=== PATIENT | female | born 1960 | race Hispanic/Latino ===

== ENCOUNTER 2018-05-07 09:57 | Emergency (ER) | payer OTHER, MEDICARE | END 2018-05-07 10:39 | disposition home or self-care (01) | LOC: EDH 09:57 | DX: G56.02 Carpal tunnel syndrome, left upper limb (principal); E11.9 Type 2 diabetes mellitus without complications; E78.5 Hyperlipidemia, unspecified; I10 Essential (primary) hypertension; I25.2 Old myocardial infarction; Z90.710 Acquired absence of both cervix and uterus; Z90.49 Acquired absence of other specified parts of digestive tract; Z98.890 Other specified postprocedural states; Z79.899 Other long term (current) drug therapy; Z88.1 Allergy status to other antibiotic agents | CPT/HCPCS: 29125 ==

== ENCOUNTER 2018-05-09 16:45 | Emergency (ER) | payer OTHER, MEDICARE ==
[2018-05-09 17:06] LABS: APPEARANCE,URINE Clear (CLEAR); BILIRUBIN,URINE Negative (NEGATIVE); COLOR,URINE Yellow (YELLOW); GLUCOSE, URINE (UA) Negative (NEGATIVE); KETONES,URINE Negative (NEGATIVE); LEUKOCYTE ESTERASE ,URINE Large (NEGATIVE); NITRATE,URINE Negative (NEGATIVE); OCCULT BLOOD,URINE Small (NEGATIVE); PROTEIN,URINE Negative (NEGATIVE); UROBILINOGEN,URINE 0.2 mg/dL (0.2-1.0)
[2018-05-09 17:17] LABS: BACTERIA,URINE Few /HPF (None Seen); SQUAMOUS EPITHELIAL CELL,UR Rare /HPF (0-2); WBC,URINE 26-50 /HPF (0-1)
[2018-05-09] MEDS ORDERED: LIDOCAINE HCL-MPF 1% 2ML VIAL ONE (17:23)
[2018-05-09] MEDS ORDERED: CEFTRIAXONE SODIUM 1 GM ONE (17:24)
== END 2018-05-09 18:26 | disposition home or self-care (01) ==
LOC: EDH 16:45
DX: N39.0 Urinary tract infection, site not specified (principal); E11.9 Type 2 diabetes mellitus without complications; E78.5 Hyperlipidemia, unspecified; I10 Essential (primary) hypertension; I25.2 Old myocardial infarction; Z88.1 Allergy status to other antibiotic agents
CPT/HCPCS: 81001; 82948; 87088; 87186; 96372; 99284; J0696; J3490

== ENCOUNTER → 2018-05-16 | Outpatient (CLI) | payer OTHER, MEDICARE | END | disposition home or self-care (01) | LOC: OIH 08:11 | PROVIDERS: ATTEND Family Medicine | DX: M25.532 Pain in left wrist (principal) | CPT/HCPCS: 71046; 73110 ==

== ENCOUNTER 2019-11-21 06:09 | Emergency (ER) | payer OTHER, MEDICARE ==
[2019-11-21] MEDS ORDERED: ONDANSETRON HCL 4 MG/2 ML VIAL ONE (06:48)
[2019-11-21] MEDS ORDERED: METOCLOPRAMIDE 10 MG/2 ML VIAL ONE (06:48)
[2019-11-21] MEDS ORDERED: SODIUM CHLORIDE 0.9% 1000ML 2,000 ML IV ONE (06:49)
[2019-11-21] MEDS ORDERED: KETOROLAC TROMETHAMINE 15MG/ML ONE (06:49)
[2019-11-21 07:10] LABS: BASOPHILS % (AUTO) 0.4 % (0.0-5.0); EOSINOPHILS % (AUTO) 0.1 % (0.0-8.0); HEMATOCRIT 42.9 % (36-48); LYMPHOCYTES % (AUTO) 15.4 % (21.0-51.0); MEAN CORPUSCULAR HGB CONC 31.9 g/dL (32.0-36.0); MEAN CORPUSCULAR VOLUME 78.1 fL (79-99); MONOCYTES % (AUTO) 4.6 % (3.0-13.0); PLATELET COUNT (AUTO) 353 K/uL (130-400); RED BLOOD CELL COUNT(AUTO) 5.49 MIL/uL (4.00-5.50); RED CELL DISTRIBUTION WIDTH 13.9 % (11.0-15.5); WHITE BLOOD COUNT (AUTO) 12.7 K/uL (4.8-10.8)
[2019-11-21 07:59] LABS: ALBUMIN 4.1 g/dL (3.5-5.0); BILIRUBIN,TOTAL 0.5 mg/dL (0.2-1.0); CREATININE 0.9 mg/dL (0.5-1.5); POTASSIUM 3.1 mmol/L (3.5-5.1); TOTAL PROTEIN, SERUM 7.9 g/dL (6.0-8.3)
[2019-11-21 08:01] LABS: APPEARANCE,URINE Clear (CLEAR); BILIRUBIN,URINE Negative (NEGATIVE); COLOR,URINE Yellow (YELLOW); GLUCOSE, URINE (UA) TRACE mg/dL (NEGATIVE); KETONES,URINE >=80 mg/dL (NEGATIVE); LEUKOCYTE ESTERASE ,URINE Negative (NEGATIVE); NITRATE,URINE Negative (NEGATIVE); OCCULT BLOOD,URINE Moderate (NEGATIVE); PH,URINE 5.5 (5.0-8.0); PROTEIN,URINE POS 2+ mg/dL (NEGATIVE); UROBILINOGEN,URINE 0.2 mg/dL (0.2-1.0)
[2019-11-21 08:15] LABS: BACTERIA,URINE Rare /HPF (None Seen); MUCUS,URINE Moderate LPF (None Seen); WBC,URINE None Seen /HPF (0-1)
[2019-11-21] MEDS ORDERED: ACETAMINOPHEN 325 MG TAB ONE (08:27)
[2019-11-21] MEDS ORDERED: ORPHENADRINE CITRATE 30 MG/ML ML ONE (08:27)
[2019-11-22] MEDS ORDERED: TROS60CA4 PO (11:13)
[2019-11-22] MEDS ORDERED: NAPR-1023 PO (11:13)
[2019-11-22] MEDS ORDERED: METO10TA3 PO (11:13)
[2019-11-22] MEDS ORDERED: LISI40TA4 PO (11:13)
[2019-11-22] MEDS ORDERED: IBUP-2070 PO (11:13)
[2019-11-22] MEDS ORDERED: LURA20TA PO (11:13)
[2019-11-22] MEDS ORDERED: ESOM40CA54 PO (11:13)
[2019-11-22] MEDS ORDERED: ONDA4TAB9 PO (11:13)
[2019-11-22] MEDS ORDERED: PROM25TA7 PO (11:13)
[2019-11-22] MEDS ORDERED: ORPH-43 PO (11:13)
[2019-11-22] MEDS ORDERED: VARE1TAB21 PO (11:13)
[2019-11-22] MEDS ORDERED: MILN50TA PO (11:13)
[2019-11-22] MEDS ORDERED: ESCI10TA54 PO (11:13)
[2019-11-22] MEDS ORDERED: AZIT250T9 PO (11:13)
[2019-11-22] MEDS ORDERED: OSEL75CA17 PO (11:13)
[2019-11-22] MEDS ORDERED: ALPR1TAB7 PO (11:13)
[2019-11-22] MEDS ORDERED: OXCA300T28 PO (11:13)
== END 2019-11-21 08:36 | disposition home or self-care (01) ==
LOC: EDH 06:09
DX: E86.9 Volume depletion, unspecified (principal); R11.2 Nausea with vomiting, unspecified; R19.7 Diarrhea, unspecified; M62.830 Muscle spasm of back; R50.9 Fever, unspecified; I10 Essential (primary) hypertension; E78.5 Hyperlipidemia, unspecified; E11.9 Type 2 diabetes mellitus without complications; I25.2 Old myocardial infarction; Z88.1 Allergy status to other antibiotic agents; Z72.0 Tobacco use; Z90.49 Acquired absence of other specified parts of digestive tract; Z98.890 Other specified postprocedural states
CPT/HCPCS: 36415; 80053; 81001; 83690; 85025; 96361; 96374; 96375; 99285; J1885; J2360; J2405; J2765; J7030

== ENCOUNTER 2020-04-09 11:52 | Emergency (ER) | payer OTHER, MEDICARE ==
[~2020-04-09 11:52] MED LIST: ALPR1TAB7 PO; ESCI10TA54 PO; ESOM40CA54 PO; IBUP-2070 PO; LISI40TA4 PO; LURA20TA PO; METO10TA3 PO; MILN50TA PO; NAPR-1023 PO; ONDA-104 PO; ORPH-43 PO; OXCA300T28 PO; PROM25TA7 PO; TROS60CA4 PO; VALA100031 PO; VARE1TAB21 PO
[2020-04-09] MEDS ORDERED: ORPHENADRINE CITRATE 30 MG/ML ML ONE (13:28)
== END 2020-04-09 13:45 | disposition home or self-care (01) ==
LOC: EDH 11:52
DX: M94.0 Chondrocostal junction syndrome [Tietze] (principal); E11.9 Type 2 diabetes mellitus without complications; E78.5 Hyperlipidemia, unspecified; I10 Essential (primary) hypertension; I25.2 Old myocardial infarction; Z90.49 Acquired absence of other specified parts of digestive tract; Z72.0 Tobacco use; Z88.0 Allergy status to penicillin; Z88.5 Allergy status to narcotic agent; V49.59XA Passenger injured in collision with other motor vehicles in traffic accident, initial encounter; Y93.89 Activity, other specified; Y92.488 Other paved roadways as the place of occurrence of the external cause; Y99.8 Other external cause status
CPT/HCPCS: 71046; 93005; 96372; 99283; J2360

== ENCOUNTER 2021-03-07 12:33 | Emergency (ER) | payer MEDICARE, OTHER ==
[~2021-03-07 12:33] MED LIST changes: +ESCI-8 PO; -ESCI10TA54 PO; -LISI40TA4 PO; +LISI40TA9 PO
[2021-03-07] MEDS ORDERED: CYCLOBENZAPRINE HCL 10 MG TABLET ONE (13:08)
[2021-03-07] MEDS ORDERED: KETOROLAC 60 MG VIAL (30MG/ML) ONE (13:08)
== END 2021-03-07 14:35 | disposition home or self-care (01) ==
LOC: EDH 12:33
DX: S16.1XXA Strain of muscle, fascia and tendon at neck level, initial encounter (principal); S40.012A Contusion of left shoulder, initial encounter; S70.02XA Contusion of left hip, initial encounter; E11.9 Type 2 diabetes mellitus without complications; E78.5 Hyperlipidemia, unspecified; I10 Essential (primary) hypertension; I25.2 Old myocardial infarction; Z90.49 Acquired absence of other specified parts of digestive tract; Z72.0 Tobacco use; Z88.0 Allergy status to penicillin; V49.49XA Driver injured in collision with other motor vehicles in traffic accident, initial encounter; Y93.89 Activity, other specified; Y92.481 Parking lot as the place of occurrence of the external cause; Y99.8 Other external cause status
CPT/HCPCS: 70450; 71045; 72125; 73030; 73502; 96372; 99285; J1885

== ENCOUNTER 2021-04-15 18:25 | Emergency (ER) | payer OTHER, MEDICARE ==
[2021-04-15 19:59] LABS: ABG BASE EXCESS -0.3 mmol/L (-2.0-3.0); ABG HCO3 21.8 mmol/L (21.0-28.0); ABG OXYGEN SATURATION 96.4 % (95.0-99.0); ABG PCO2 29 mmHg (32-45)
[2021-04-15] MEDS ORDERED: METOCLOPRAMIDE 10 MG/2 ML VIAL ONE (19:59)
[2021-04-15] MEDS ORDERED: SODIUM CHLORIDE 0.9% 1000ML 1,000 ML IV ONE (19:59)
[2021-04-15] MEDS ORDERED: ONDANSETRON HCL 4 MG/2 ML VIAL ONE (19:59)
[2021-04-15 20:16] LABS: BASOPHILS % (AUTO) 0.3 % (0.0-5.0); HEMATOCRIT 39.2 % (36-48); LYMPHOCYTES % (AUTO) 14.1 % (21.0-51.0); MEAN CORPUSCULAR HEMOGLOBIN 25.1 pg (27.0-33.0); MEAN CORPUSCULAR HGB CONC 31.9 g/dL (32.0-36.0); MEAN CORPUSCULAR VOLUME 78.7 fL (79-99); MONOCYTES % (AUTO) 4.8 % (3.0-13.0); NEUTROPHILS % (AUTO) 80.7 % (40.0-77.0); PLATELET COUNT (AUTO) 364 K/uL (130-400); RED BLOOD CELL COUNT(AUTO) 4.98 MIL/uL (4.00-5.50); RED CELL DISTRIBUTION WIDTH 13.5 % (11.0-15.5)
[2021-04-15 20:28] LABS: INR 1.04 (0.85-1.15); PROTHROMBIN TIME 11.3 SEC (9.6-11.6)
[2021-04-15 20:29] LABS: PARTIAL THROMBOPLASTIN TIME 26.2 SEC (26.3-35.5)
[2021-04-15 20:31] LABS: APPEARANCE,URINE Clear (CLEAR); BILIRUBIN,URINE Negative (NEGATIVE); COLOR,URINE Yellow (YELLOW); GLUCOSE, URINE (UA) >=1000 mg/dL (NEGATIVE); KETONES,URINE >=80 mg/dL (NEGATIVE); LEUKOCYTE ESTERASE ,URINE Trace (NEGATIVE); NITRATE,URINE Negative (NEGATIVE); OCCULT BLOOD,URINE Negative (NEGATIVE); PROTEIN,URINE Negative (NEGATIVE)
[2021-04-15 20:31] LABS: ALBUMIN 4.1 g/dL (3.5-5.0); BILIRUBIN,TOTAL 0.2 mg/dL (0.2-1.0); CREATININE 0.9 mg/dL (0.5-1.5); POTASSIUM 3.2 mmol/L (3.5-5.1); TOTAL PROTEIN, SERUM 8.4 g/dL (6.0-8.3)
[2021-04-15 20:38] LABS: BACTERIA,URINE Rare /HPF (None Seen); RBC,URINE 0-1 /HPF (0-1)
[2021-04-15 20:39] LABS: SQUAMOUS EPITHELIAL CELL,UR Few /HPF (0-2)
[2021-04-15 20:40] LABS: B-TYPE NATRIURETIC PEPTIDE 9 pg/mL (0-100)
[2021-04-15 20:40] LABS: AMPHET/METH SCREEN,URINE NEGATIVE (NEGATIVE); BARBITURATE SCREEN, URINE NEGATIVE (NEGATIVE); BENZODIAZEPINES SCREEN,URINE POSITIVE (NEGATIVE); CANNABINOID SCREEN,URINE NEGATIVE (NEGATIVE); COCAINE SCREEN,URINE NEGATIVE (NEGATIVE); OPIATE SCREEN,URINE NEGATIVE (NEGATIVE); PHENCYCLIDINE SCREEN,URINE NEGATIVE (NEGATIVE)
[2021-04-15] MEDS ORDERED: PANTOPRAZOLE 40 MG/VIAL ONE (23:25)
[2021-04-15] MEDS ORDERED: FAMOTIDINE/PF 20 MG/2 ML VIAL IV ONE (23:25)
[2021-04-15] MEDS ORDERED: DiphenhydrAMINE HCL 50 MG/ML VIAL ONE (23:25)
== END 2021-04-15 23:57 | disposition home or self-care (01) ==
LOC: EDH 18:25
DX: K29.00 Acute gastritis without bleeding (principal); E86.0 Dehydration; Z20.822 Contact with and (suspected) exposure to COVID-19; I10 Essential (primary) hypertension; E11.9 Type 2 diabetes mellitus without complications; E78.5 Hyperlipidemia, unspecified; I25.2 Old myocardial infarction; Z88.1 Allergy status to other antibiotic agents; Z88.0 Allergy status to penicillin; Z86.73 Personal history of transient ischemic attack (TIA), and cerebral infarction without residual deficits; Z72.0 Tobacco use
CPT/HCPCS: 36415; 36600; 71045; 80053; 80305; 81001; 82010; 82435; 82550; 82803; 82947; 83605 ×2; 83690; 83880; 84132; 84145; 84295; 84484; 85018; 85025; 85610; 85730; 86140; 87040 ×2; 87077; 87088; 87186; 87426; 87804 ×2; 93005; 96361 ×2; 96374; 96375; 99285; C9113; J1200; J2405; J2765; J3490; J7030; U0003